=== PATIENT | female | born 1990 | race Two or more races ===

== ENCOUNTER 2021-05-03 13:33 | Emergency (ER) | payer MEDICAID, OTHER ==
[~2021-05-03] VITALS: Ht 167.6 cm; Wt 56.7 kg
[2021-05-03 14:17] LABS: Basophils # (auto) 0 10 ^3/uL (0-0.2); Basophils % (auto) 0.3 % (0.0-2.0); Eosinophils # (auto) 0.1 10 ^3/uL (0-0.8); Eosinophils % (auto) 1.1 % (0.0-7.0); Hematocrit 35.3 % (36.0-46.0); Hemoglobin 12.1 g/dL (12.2-16.2); Lymphocytes # (auto) 1.2 10 ^3/uL (0.4-5.4); Mean Corpuscular Hgb Conc. 34.2 g/dL (32.0-36.0); Mean Corpuscular Volume 87.8 fL (80.0-100.0); Monocytes # (auto) 0.4 10 ^3/uL (0-1.3); Monocytes % (auto) 7.7 % (0.0-12.0); Neutrophils # (auto) 3.9 10 ^3/uL (1.6-8.6); Neutrophils % (auto) 69.9 % (37.0-80.0); Red Blood Cells 4.03 10^6/uL (4.0-5.20); Red Cell Distribution Width 15.3 % (11.8-14.3); White Blood Cell 5.5 10^3/uL (4.4-10.8)
[2021-05-03 14:32] LABS: Albumin 3.7 g/dL (3.4-5.0); BUN/Creatinine Ratio 11.3; Calcium 9.6 mg/dL (8.5-10.1); Potassium 4.5 mmol/L (3.5-5.1)
[2021-05-03 14:35] LABS: Total Protein 8.1 g/dL (6.4-8.2)
[2021-05-03 15:17] LABS: Urine Bacteria FEW /hpf (None Seen); Urine Blood Negative /uL (Negative); Urine Hyaline Cast FEW /lpf (0 - 2); Urine Mucus FEW (None Seen); Urine Specific Gravity 1.029 (1.001-1.035); Urine WBC 9 /hpf (0 - 5)
[2021-05-03] MEDS ORDERED: ONDANSETRON HCL 4 MG/2 ML VIAL IV ONE (15:45)
[2021-05-03] MEDS ORDERED: SODIUM CHLORIDE 0.9% 2,000 ML IV ONE (15:45)
[2021-05-03] MEDS ORDERED: cefTRIAXone 1GM/50ML D5W 50 ML IV ONE (15:45)
[2021-05-03 17:09] VITALS: BP 93/63
== END 2021-05-03 18:15 | disposition home or self-care (01) ==
LOC: ER 13:33
DX: O23.42 Unspecified infection of urinary tract in pregnancy, second trimester (principal); O99.612 Diseases of the digestive system complicating pregnancy, second trimester; K52.9 Noninfective gastroenteritis and colitis, unspecified; Z3A.15 15 weeks gestation of pregnancy
CPT/HCPCS: 36415; 76805; 80053; 81001; 84702; 85025; 85049; 96365; 96375; 99284; J0696; J2405; J7030

== ENCOUNTER 2022-04-05 23:16 | Emergency (ER) | payer MEDICAID ==
[~2022-04-05] VITALS: Ht 165.1 cm; Wt 54.4 kg
[2022-04-06 00:14] VITALS: BP 132/70
== END 2022-04-06 04:48 | disposition left against medical advice (07) ==
LOC: ER 23:16
DX: H57.12 Ocular pain, left eye (principal); Z53.21 Procedure and treatment not carried out due to patient leaving prior to being seen by health care provider

== ENCOUNTER 2024-11-23 11:11 | Emergency (ER) | payer BC, MEDICAID ==
[~2024-11-23] VITALS: Ht 167.6 cm; Wt 52.3 kg
[2024-11-23 11:27] VITALS: BP 118/70; PULSE 134; RESP 18; O2SAT 98
--- NOTE | 2024-11-23 11:50 | ED.PDOC ---
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 Pt states she is , currently 12 weeks , and states she started having vaginal bleeding since 30 minutes prior. Pt states she has gone through 3 pads per hour since. Pt states she is also having cramping pain, rating it 8/10, with no associated exacerbating or relieving factors. Pt otherwise has noted nausea but denies any other symptoms. 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 Pt states she has not yet established care with OB but states she has PCP appt coming up and will ask for referral to OB at time of PCP appt. Pt otherwise denies any other symptoms at this time. Chief Complaint: Vaginal Bleed Time Seen by MD: 11:47 Reviewed Notes: Nurses Notes Allergies: Coded Allergies: NO KNOWN ALLERGIES (Unverified , 05/03/21) Information Source: Patient Mode of Arrival: Ambulatory Brought in by: self Timing: Hours Prehospital treatment: None Severity: Moderate Vaginal Discharge: None Vaginal Lesions: None Bleeding Quality: Bright Red Vaginal Mass: None Onset Of Mass/Bleeding: Spontaneous Sexual Activity: Last Consensual [place]: Hours Control: None History of: Current Blood Type: Unknown Symptoms of Possible : None Associated Signs and Symptoms: Vaginal Bleeding, N/V Past Medical History PAST MEDICAL HISTORY: Denies Surgical History: Denies all surgeries BRAND ATTENDANT History: Denies all BRAND ATTENDANT Hx Family History Family History: Family hx of DM Social History Smoker: Non-Smoker Alcohol: Denies ETOH Use Drugs: Denies Drug Use Lives In: Home Constitutional: denies: chills, diaphoresis, fatigue, fever, malaise, sweats, weakness, others EENTM: denies: blurred vision, double vision, ear bleeding, ear discharge, ear drainage, ear pain, ear ringing, eye pain, eye redness, hearing loss, mouth pain, mouth swelling, nasal discharge, nose bleeding, nose congestion, nose pain, photophobia, tearing, throat pain, throat swelling, voice changes, others Respiratory: denies: cough, hemoptysis, orthopnea, SOB at rest, shortness of breath, SOB with excertion, stridor, wheezing, others Cardiovascular: denies: chest pain, dizzy spells, diaphoresis, Dyspnea on exertion, edema, irregular heart beat, left arm pain, lightheadedness, palpitations, PND, syncope, others Gastrointestinal: reports: nausea; denies: abdomen distended, abdominal pain, blood streaked bowels, constipated, diarrhea, dysphagia, difficulty swallowing, hematemesis, melena, poor appetite, poor fluid intake, rectal bleeding, rectal pain, vomiting, others Genitourinary: reports: abnormal vagina bleeding; denies: burning, dyspareunia, dysuria, flank pain, frequency, hematuria, incontinence, pain, , vagina discharge, urgency, others Neurological: denies: dizziness, fainting, headache, left sided numbness, left sided weakness, numbness, paresthesia, pre-existing deficit, right sided numbness, right sided weakness, seizure, speech problems, tingling, tremors, weakness, others Musculoskeletal: denies: back pain, gout, joint pain, joint swelling, muscle pain, muscle stiffness, neck pain, others Integumetry: denies: bruises, change in color, change in hair/nails, dryness, laceration, lesions, lumps, rash, wounds, others Allergic/Immunocompromised: denies: Difficulty Healing, Frequent Infections, Hives, Itching, others Hematologic/Lymphatic: denies: anemia, blood clots, easy bleeding, easy bruising, swollen glands, others Endocrine: denies: excessive hunger, excessive sweating, excessive thirst, excessive urination, flushing, intolerance to cold, intolerance to heat, unexplained weight gain, unexplained weight loss, others Psychiatric: denies: anxiety, bipolar disorder, depression, hopeless, panic disorder, schizophrenia, sleepless, suicidal, others All Other Systems: Reviewed and Negative Was a procedure done? Was a procedure done?: No Differential Diagnosis (BRAND ATTENDANT) Vaginal Bleeding: - Complete, - Incomplete, - Inevitable, - Missed, Blood Loss Anemia, Cervicitis, UTI, Vaginitis, Other (subchorionic hemorrhag) X-Ray, Labs, Meds, VS Vital Signs Date Time Temp Pulse Resp B/P (MAP) Pulse Ox O2 Delivery O2 Flow Rate FiO2 11/23/24 11:27 97.7 134 18 118/70 (86) 98 Time of 1ST Reevaluation: 12:20 Reevaluation 1ST: Unchanged Patient Education/Counseling: Diagnosis, Treatment Family Education/Counseling: No Family Present Critical Care Note Critical Care Time?: No Stability Stability form required: No Heart Score Heart Score: Heart Score Response (Comments) Value History N/A 0 EKG N/A 0 Age N/A 0 Risk Factors N/A 0 Troponin N/A 0 Total 0 I personally scribed for ORQUIDEA NOBLES MD ([email or web address]) on 11/23/24 at 11:50. Electronically submitted by Yunier Damico ([email or web address]). I personally scribed for ORQUIDEA NOBLES MD ([email or web address]) on 11/23/24 at 11:52. Electronically submitted by Yunier Damico ([email or web address]). ORQUIDEA NOBLES MD Nov 23, 2024 11:50
--- NOTE | 2024-11-23 11:55 | ED.PDOC ---
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 Pt states she is , currently 12 weeks , and states she started having vaginal bleeding since 30 minutes prior. Pt states she has gone through 3 pads per hour since. Pt states she is also having cramping pain, rating it 8/10, with no associated exacerbating or relieving factors. Pt otherwise has noted nausea but denies any other symptoms. 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 Pt states she has not yet established care with OB but states she has PCP appt coming up and will ask for referral to OB at time of PCP appt. Pt otherwise denies any other symptoms at this time. Chief Complaint: Vaginal Bleed Time Seen by MD: 11:52 Reviewed Notes: Nurses Notes Allergies: Coded Allergies: NO KNOWN ALLERGIES (Unverified , 05/03/21) Information Source: Patient Mode of Arrival: Ambulatory Brought in by: self Timing: Hours Prehospital treatment: None Severity: Moderate Vaginal Discharge: None Vaginal Lesions: None Bleeding Quality: Bright Red Vaginal Mass: None Onset Of Mass/Bleeding: Spontaneous Sexual Activity: Last Consensual [place]: Hours Control: None History of: Current Blood Type: Unknown Symptoms of Possible : Nausea Associated Signs and Symptoms: Vaginal Bleeding Past Medical History PAST MEDICAL HISTORY: Denies Surgical History: Denies all surgeries 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 FINANCIAL PLANNER History: Denies all PERSONAL FINANCIAL PLANNER Hx Family History Family History: Family hx of DM Social History Smoker: Non-Smoker Alcohol: Denies ETOH Use Drugs: Denies Drug Use Lives In: Home Constitutional: denies: chills, diaphoresis, fatigue, fever, malaise, sweats, weakness, others EENTM: denies: blurred vision, double vision, ear bleeding, ear discharge, ear drainage, ear pain, ear ringing, eye pain, eye redness, hearing loss, mouth pain, mouth swelling, nasal discharge, nose bleeding, nose congestion, nose pain, photophobia, tearing, throat pain, throat swelling, voice changes, others Respiratory: denies: cough, hemoptysis, orthopnea, SOB at rest, shortness of breath, SOB with excertion, stridor, wheezing, others Cardiovascular: denies: chest pain, dizzy spells, diaphoresis, Dyspnea on exertion, edema, irregular heart beat, left arm pain, lightheadedness, palpitations, PND, syncope, others Gastrointestinal: reports: nausea; denies: abdomen distended, abdominal pain, blood streaked bowels, constipated, diarrhea, dysphagia, difficulty swallowing, hematemesis, melena, poor appetite, poor fluid intake, rectal bleeding, rectal pain, vomiting, others Genitourinary: reports: abnormal vagina bleeding; denies: burning, dyspareunia, dysuria, flank pain, frequency, hematuria, incontinence, pain, , vagina discharge, urgency, others Neurological: denies: dizziness, fainting, headache, left sided numbness, left sided weakness, numbness, paresthesia, pre-existing deficit, right sided numbness, right sided weakness, seizure, speech problems, tingling, tremors, weakness, others Musculoskeletal: denies: back pain, gout, joint pain, joint swelling, muscle pain, muscle stiffness, neck pain, others Integumetry: denies: bruises, change in color, change in hair/nails, dryness, laceration, lesions, lumps, rash, wounds, others Allergic/Immunocompromised: denies: Difficulty Healing, Frequent Infections, Hives, Itching, others Hematologic/Lymphatic: denies: anemia, blood clots, easy bleeding, easy bruising, swollen glands, others Endocrine: denies: excessive hunger, excessive sweating, excessive thirst, excessive urination, flushing, intolerance to cold, intolerance to heat, unexplained weight gain, unexplained weight loss, others Psychiatric: denies: anxiety, bipolar disorder, depression, hopeless, panic disorder, schizophrenia, sleepless, suicidal, others All Other Systems: Reviewed and Negative Physical Exam General Appearance: No Apparent Distress HEENT: Normal ENT Inspection, Pharynx Normal, TMs Normal Neck: Full Range of Motion, Non-Tender, Normal, Normal Inspection Respiratory: Chest Non-Tender, Lungs Clear, No Accessory Muscle Use, No Respiratory Distress, Normal Breath Sounds Cardiovascular: No Edema, No JVD, No Murmur, No Gallop, Normal Peripheral Pulses, Regular Rate/Rhythm Breast Exam: Deferred Gastrointestinal: No Organomegaly, Non Tender, No Pulsatile Mass, Normal Bowel Sounds, Soft Genitalia: Deferred Pelvic: Deferred Rectal: Deferred Extremities: No calf tenderness, Normal capillary refill, Normal inspection, Normal range of motion, Non-tender, No pedal edema Musculoskeletal : Apperance: Normal Neurologic: Alert, crt II-XII nml as Tested, No Motor Deficits, Normal Affect, Normal Mood, No Sensory Deficits Cerebellar Function: Normal Reflexes: Normal Skin: Dry, Normal Color, Warm Lymphatic: No Adenopathy Was a procedure done? Was a procedure done?: No Differential Diagnosis (PERSONAL FINANCIAL PLANNER) Vaginal Bleeding: - Complete, - Incomplete, - Inevitable, - Missed, - Threatened, Blood Loss Anemia, UTI, Vaginitis, Other (subchorionic hemorrhage) X-Ray, Labs, Meds, VS Vital Signs Date Time Temp Pulse Resp B/P (MAP) Pulse Ox O2 Delivery O2 Flow Rate FiO2 11/23/24 11:27 97.7 134 18 118/70 (86) 98 Lab Test 11/23/24 11:44 Range/Units White Blood Count 3.7 L 4.4-10.8 10^3/uL Red Blood Count 4.62 4.0-5.20 10^6/uL Hemoglobin 14.0 12.2-16.2 g/dL Hematocrit 41.5 36.0-46.0 % Mean Corpuscular Volume 89.7 80.0-100.0 fL Mean Corpuscular Hemoglobin 30.3 28.0-32.0 pg Mean Corpuscular Hemoglobin Concent 33.7 32.0-36.0 g/dL Red Cell Distribution Width 12.9 11.8-14.3 % Platelet Count 270 140-450 10^3/uL Mean Platelet Volume 7.2 6.9-10.8 fL Neutrophils (%) (Auto) 56.5 37.0-80.0 % Lymphocytes (%) (Auto) 33.3 10.0-50.0 % Monocytes (%) (Auto) 8.1 0.0-12.0 % Eosinophils (%) (Auto) 1.5 0.0-7.0 % Basophils (%) (Auto) 0.6 0.0-2.0 % Neutrophils # (Auto) 2.1 1.6-8.6 10 ^3/uL Lymphocytes # (Auto) 1.2 0.4-5.4 10 ^3/uL Monocytes # (Auto) 0.3 0-1.3 10 ^3/uL Eosinophils # (Auto) 0.1 0-0.8 10 ^3/uL Basophils # (Auto) 0 0-0.2 10 ^3/uL Nucleated Red Blood Cells 0.1 % Beta HCG, Quantitative > 563473.0 H 1.5-4.2 mIU/mL The CBC is within normal limits The quantitative hCG is greater than [id number] The ultrasound of the pelvis shows: IMPRESSION: IUP single live fetus 11 weeks 1 day AUA corresponding to an OBDULIO of 06/13/2025. Anechoic structure in the uterus measuring 2 cm may represent a subchorionic hematoma. When the patient was being discharged and will follow up with her OBGYN The patient will return to the emergency department's condition worsens. Images Reviewed?: Images reviewed and evaluated by me Time of 1ST Reevaluation: 12:20 Reevaluation 1ST: Unchanged Patient Education/Counseling: Diagnosis, Treatment, Prognosis, Need For Follow Up Family Education/Counseling: No Family Present Additional Information - I reviewed the following notes from patient's past medical encounters: - The following tests were ordered, and results were reviewed by me: (Labs, X- Ray, EKG): CBC, beta HCG, OB ultrasound comp - Additional information was gathered from interviewing the following independent Historian: (Family, Other Providers, EMT): none - I reviewed and agreed with the following test results read by other provider: (X-ray, CT, US): radiologist - I discussed treatments and results with medical personnel and: (consultants, family): none Departure 1 Departure Time of Disposition: 12:20 Impression: Primary Impression: Threatened Disposition: 01 HOME / SELF CARE / HOMELESS Condition: Fair Critical Care Note Critical Care Time?: No Stability Stability form required: No Heart Score Heart Score: Heart Score Response (Comments) Value History N/A 0 EKG N/A 0 Age N/A 0 Risk Factors N/A 0 Troponin N/A 0 Total 0 I personally scribed for BARBIE OWUSU MD ([email or web address]) on 11/23/24 at 11:54. Electronically submitted by Yunier Damico ([email or web address]). I personally scribed for BARBIE OWUSU MD ([email or web address]) on 11/23/24 at 11:55. Electronically submitted by Yunier Damico ([email or web address]). BARBIE OWUSU MD Nov 23, 2024 11:54
[2024-11-23 12:12] LABS: Basophils # (auto) 0 10 ^3/uL (0-0.2); Basophils % (auto) 0.6 % (0.0-2.0); Eosinophils # (auto) 0.1 10 ^3/uL (0-0.8); Eosinophils % (auto) 1.5 % (0.0-7.0); Hematocrit 41.5 % (36.0-46.0); Lymphocytes # (auto) 1.2 10 ^3/uL (0.4-5.4); Lymphocytes % (auto) 33.3 % (10.0-50.0); Mean Corpuscular Hemoglobin 30.3 pg (28.0-32.0); Mean Corpuscular Hgb Conc. 33.7 g/dL (32.0-36.0); Mean Corpuscular Volume 89.7 fL (80.0-100.0); Monocytes # (auto) 0.3 10 ^3/uL (0-1.3); Monocytes % (auto) 8.1 % (0.0-12.0); Neutrophils # (auto) 2.1 10 ^3/uL (1.6-8.6); Neutrophils % (auto) 56.5 % (37.0-80.0); Nucleated Red Blood Cells % 0.1 %; Platelet Count (auto) 270 10^3/uL (140-450); Red Blood Cells 4.62 10^6/uL (4.0-5.20); Red Cell Distribution Width 12.9 % (11.8-14.3); White Blood Cell 3.7 10^3/uL (4.4-10.8)
--- NOTE | 2024-11-23 12:34 | DVH ---
OB ULTRASOUND <14 WEEKS: HISTORY: vag bleeding TECHNIQUE: Multiple real-time grayscale sonographic images of the pelvis with duplex Doppler color f low, spectral and M-mode analysis. TRANSDUCERS: Transabdominal FINDINGS: The uterus measures 10.6 x 9.4 x 8.1 cm. The cervix not well visualized Right ovary measures 2.4 x 1.5 x 1 cm with normal Doppler color flow Left ovary is not well visualized due to obscuration from bowel gas. IUP single live fetus at 11 weeks 1 day average ultrasound age based on mean crown-rump length of 4.8 cm and gestational sac size of 5.0 cm. Anechoic structure in the uterus measuring 2 cm may represent a subchorionic hematoma. heart rate detected at 170 beats per minute. Yolk sac visualized. IMPRESSION: IUP single live fetus 11 weeks 1 day AUA corresponding to an OBDULIO of 06/13/2025. Anechoic structure in the uterus measuring 2 cm may represent a subchorionic hematoma.
== END 2024-11-23 14:52 | disposition home or self-care (01) ==
LOC: ER 11:11
DX: O20.0 Threatened abortion (principal); Z3A.12 12 weeks gestation of pregnancy
CPT/HCPCS: 36415; 76801; 84702; 85025